=== PATIENT | female | born 1980 | race Caucasian/White ===

== ENCOUNTER 2021-12-18 15:03 | Emergency (ER) | payer OTHER ==
[~2021-12-18] VITALS: Ht 167.6 cm; Wt 73.9 kg
--- NOTE | 2021-12-18 15:45 | NUR ---
PT AMBULATED TO BED 6
[2021-12-18 15:50] VITALS: BP 120/69
--- NOTE | 2021-12-18 15:59 | NUR ---
41 Y/O FEMALE BIB SELF C/O R HAND PINKY PAIN NAD NUMBNESS. PAIN RATED 10/10. PPT DENIES TRAUMA. PMH: DENIES MEDS: DENIES NKA
[2021-12-18] MEDS ORDERED: KETOROLAC 60 MG/2 ML VIAL IM ONE (16:15)
--- NOTE | 2021-12-18 16:27 | NUR ---
XR AT PT BEDSIDE
[2021-12-18] MEDS ORDERED: IBUP-2213 PO (16:57)
[2021-12-18] MEDS ORDERED: ACET-8386 PO (16:57)
[2021-12-18 17:17] VITALS: BP 120/69
--- NOTE | 2021-12-18 17:19 | NUR ---
Patient discharged with v/s stable. Written and verbal after care instructions given and explained. Patient alert, oriented and verbalized understanding of instructions. Ambulatory with steady gait. All questions addressed prior to discharge. ID band removed. Patient advised to follow up with PMD. Rx of HYDROCODONE/ACETAMINOPHEN, IBUPROFEN given. Patient educated on indication of medication including possible reaction and side effects. Opportunity to ask questions provided and answered.
== END 2021-12-18 17:19 | disposition home or self-care (01) ==
LOC: MED 15:03
DX: S60.221A Contusion of right hand, initial encounter (principal); F17.200 Nicotine dependence, unspecified, uncomplicated; X58.XXXA Exposure to other specified factors, initial encounter; Y93.89 Activity, other specified; Y92.89 Other specified places as the place of occurrence of the external cause; Y99.8 Other external cause status
CPT/HCPCS: 73130; 96372; 99283; J1885